=== PATIENT | male | born 1975 | race Caucasian/White ===

== ENCOUNTER 2024-06-07 18:53 | Emergency (ER) | payer OTHER ==
[2024-06-07 19:39] VITALS: O2SAT 100
--- NOTE | 2024-06-07 19:43 | ERPHSYRPT ---
- History of Present Illness Time Seen by Provider: 06/07/24 19:35 Source: patient, family Exam Limitations: no limitations Physician History: This is a 49-year-old white male patient who presents with weakness and fatigue as well as dark stools that he has been passing for approximately 2 to 3 days. He was seen at [facility] and I reviewed the outside facility emergency department medical chart from there from his visit June 05 and 2024. Patient was found to have a hemoglobin of 4.3. However, this patient has had multiple evaluations and treatments in the emergency department [facility] and often becomes angry and belligerent and this time he was admitted into the hospital and given octreotide and was to start blood transfusions of packed red blood cells. However, he decided to leave AMA. He called our emergency department and asked only if we could provide blood transfusions of packed red cells if it was necessary for him to have. He was told yes. Patient has a history of symptomatic anemia, liver cirrhosis, esophageal varices, hepatitis C, schizophrenia, thrombocytopenia, alcohol abuse. His baseline hemoglobin level is 9 per review of the outside facility patient's chart. Patient was calm and kind here in the emergency department. Timing/Duration: day(s) (Approximately 2 to 3 days) Severity: moderate Modifying Factors: Improves With: nothing Associated Symptoms: shortness of breath, weakness, other (Fatigue) Allergies/Adverse Reactions: codeine Allergy (Severe, Verified 06/07/24 19:41) Difficulty Breathing Penicillins Allergy (Severe, Verified 06/07/24 19:41) Difficulty Breathing Home Medications: Albuterol 8 gm Mdi Hfa [Ventolin Hfa MDI] 2 puff IH UD 06/07/24 [History] diazePAM [Valium] 10 mg PO BID 06/07/24 [History] Travel Risk - International Travel Have you traveled outside of the country in past 3 weeks: No - Emerging Infectious Disease Are you exhibiting symptoms associated with any current EIDs: No - Review of Systems Constitutional: Fatigue, Weakness Eyes: No Symptoms Ears, Nose, & Throat: No Symptoms Respiratory: Dyspnea Cardiac: Chest Pain (Mild) Abdominal/Gastrointestinal: No Symptoms Genitourinary Symptoms: No Symptoms Musculoskeletal: No Symptoms Skin: No Symptoms Neurological: No Symptoms Psychological: No Symptoms Endocrine: No Symptoms Hematologic/Lymphatic: No Symptoms Immunological/Allergic: No Symptoms All Other Systems: Reviewed and Negative - Past Medical History Pertinent Past Medical History: Yes - Nursing Vital Signs Nursing Vital Signs: Initial Vital Signs Pulse Rate 111 H 06/07/24 19:38 Respiratory Rate 20 06/07/24 19:38 Blood Pressure 120/78 06/07/24 19:38 O2 Sat by Pulse Oximetry 100 06/07/24 19:38 Pain Scale Pain Intensity 0 - Physical Exam General Appearance: no apparent distress, alert, anxiety, obese Eye Exam: pale conjunctivae Ears, Nose, Throat Exam: normal ENT inspection, dry mucous membranes Neck Exam: normal inspection, non-tender, supple, full range of motion Respiratory Exam: normal breath sounds, chest tenderness (Mild anterior), lungs clear, airway intact, No respiratory distress Cardiovascular Exam: tachycardia Gastrointestinal/Abdomen Exam: soft, normal bowel sounds, No tenderness Rectal Exam: not done Back Exam: normal inspection, normal range of motion, No CVA tenderness, No vertebral tenderness Extremity Exam: normal inspection, normal range of motion, pelvis stable Neurologic Exam: alert, oriented x 3, cooperative, manager life II-XII nml as tested, nml cerebellar function, nml station & gait, sensation nml Skin Exam: warm, dry, pale SpO2 Interpretation: normal SpO2: 100 - Course Nursing assessment & vital signs reviewed: Yes Ordered Tests: Active Orders 24 hr Category Date Time Status IV Insertion STAT Care 06/07/24 20:07 Active AMYLASE Stat Lab 06/07/24 19:45 Received CBC W DIFF Stat Lab 06/07/24 19:45 Completed CMP Stat Lab 06/07/24 19:45 Received Manual Differential NC Stat Lab 06/07/24 19:45 Completed PROTIME WITH INR Stat Lab 06/07/24 19:45 Received UA W/RFX UR CULTURE Stat Lab 06/07/24 20:08 Ordered Medication Summary Generic Name Dose Route Start Last Admin Trade Name Freq PRN Reason Stop Dose Admin Sodium Chloride 1,000 mls @ 50 mls/hr 06/07/24 20:15 Sodium Chloride 0.9% 1000 Ml IV 07/07/24 20:14 .Q20H KALEB Discontinued Medications Generic Name Dose Route Start Last Admin Trade Name Freq PRN Reason Stop Dose Admin Lorazepam 1 mg 06/07/24 20:08 Lorazepam 2 Mg/1 Ml 2 Mg Vial IV 06/07/24 20:09 STAT ONE Ondansetron HCl 4 mg 06/07/24 20:07 Ondansetron Hcl 4 Mg/2 Ml Vial IV 06/07/24 20:08 STAT ONE Pantoprazole Sodium 40 mg 06/07/24 20:07 Pantoprazole 40 Mg Vial IV 06/07/24 20:08 STAT ONE Lab/Rad Data: Laboratory Result Diagrams 06/07/24 19:45 Laboratory Results 06/07/24 Range/Units 19:45 WBC 6.3 (4.23-9.07) x10^3/uL RBC 2.23 L (4.63-6.08) x10^6/uL Hgb 4.5 L* (13.7-17.5) g/dL Hct 16.3 L (40.1-51.0) % MCV 73.1 L (79.0-92.2) fL MCH 20.2 L (25.7-32.2) pg MCHC 27.6 L (32.3-36.5) g/dL RDW 18.3 H (11.6-14.4) % Plt Count 122 L (163-337) x10^3/uL MPV 11.1 (9.4-12.4) fL Gran % 74.8 H (34.0-67.9) % Immature Gran % (Auto) 0.3 (0.001-0.429) % Nucleat RBC Rel Count 0.0 (0.00-0.2) % Eos # (Auto) 0.14 (0.04-0.54) x10^3/uL Immature Gran # (Auto) 0.02 (0.001-0.031) x10^3u/L Absolute Lymphs (auto) 0.98 L (1.32-3.57) x10^3/uL Absolute Monos (auto) 0.44 (0.30-0.82) x10^3/uL Absolute Nucleated RBC 0.00 (0.00-0.012) x10^3u/L Lymphocytes % 15.5 L (21.8-53.1) % Monocytes % 6.9 (5.3-12.2) % Eosinophils % 2.2 (0.8-7.0) % Basophils % 0.3 (0.2-1.2) % Absolute Granulocytes 4.74 (1.78-5.38) x10^3/uL Basophils # 0.02 (0.01-0.08) x10^3/uL - Progress Progress: unchanged Progress Note: 06/07/24 20:25 My medical decision making and the assignment of high complexity is based on the review of the patient's past medical history, review of patient's medication list, review of patient drug allergy list, history present illness and physical findings on examination. The workup in this patient includes intravenous line placement, infusion normal saline solution, type and cross this patient for 2 units of packed red blood cells, CBC, CMP, twelve-lead EKG, troponin level, CT scan of the abdomen pelvis without contrast. 1 to 2 units of packed red blood cells are available we will begin transfusion of them. The patient will need to be transferred to a facility where there is a hogshead stock clerk available. When I discussed this with him, he was surprised. He was not angry. He stated that he was told by the nurse that we had GI services available here at our facility and have the ability to provide the patient with blood transfusion. It was confirmed and verified by other nurses that the patient was told by the nurse that we had ability to provide the patient with blood transfusions. The nurse was never asked about GI services. She did not have out side facility emergency department paperwork at the time she was discussing with the patient. The patient is adamant that he is leaving and taking his with him and going to [place]. He did not want to go back to [facility]. I encouraged him to allow us to put the IV in, provide him with infusion of IV fluids and packed red blood cells as well as continue with our workup since he was hemod ynamically stable with only mild tachycardia at this time and there was no signs of active bleeding. I also recommended that he allow us to contact the facility where he wants to go to and transfer him formally. He is refusing and he wants to leave AGAINST MEDICAL ADVICE. The patient is awake alert and oriented and has a capacity to understand what I am saying. He did repeat back what I told him and he still wants to leave AGAINST MEDICAL ADVICE. He does not want to be transferred by ambulance. He stated he cannot leave his . He understands the benefits of continuing the workup as planned and transferring via an ambulance. He also understands the risk of worsening condition, sudden active bleeding and possible . Medical Desision Making - Independent Historian Additional History obtained from: Spouse - Diagnostic Testing Diagnostic test were ordered, analyzed, and reviewed by me: No - Risk of complications The pt has a high risk of morbidity or mortality based on: Decision regarding hospitilization or escalation of hosp level of care - Departure Departure Disposition: AMA Clinical Impression: Symptomatic anemia Condition: Stable Critical Care Time: Yes Critical Care Time(excluding separately billable procedures): Critical 30-74 mins (30)
[2024-06-07] MEDS ORDERED: Zofran 4 MG/2 ML VIAL IV ONE (20:07)
[2024-06-07] MEDS ORDERED: PROTONIX 40 MG IV IV ONE (20:07)
[2024-06-07] MEDS ORDERED: Ativan 2 MG/1 ML VIAL IV ONE (20:08)
[2024-06-07 20:14] LABS: Absolute Neutrophil Ct (ANC) 4.74 x10^3/uL (1.78-5.38); BASOPHIL % 0.3 % (0.2-1.2); Basophil (Absolute #) 0.02 x10^3/uL (0.01-0.08); Eosinophil % 2.2 % (0.8-7.0); Eosinophil (Absolute #) 0.14 x10^3/uL (0.04-0.54); Hematocrit 16.3 % (40.1-51.0); IMMATURE GRAN # 0.02 x10^3u/L (0.001-0.031); IMMATURE GRAN % 0.3 % (0.001-0.429); Lymphocyte (Absolute #) 0.98 x10^3/uL (1.32-3.57); Lymphocytes % 15.5 % (21.8-53.1); Mean Cell Volume 73.1 fL (79.0-92.2); Mean Corpuscular Hemoglobin 20.2 pg (25.7-32.2); Mean Corpuscular Hgb Concent. 27.6 g/dL (32.3-36.5); Mean Platelet Volume 11.1 fL (9.4-12.4); Monocyte (Absolute #) 0.44 x10^3/uL (0.30-0.82); Monocytes % 6.9 % (5.3-12.2); Neutrophil % 74.8 % (34.0-67.9); Platelet Count 122 x10^3/uL (163-337); Red Blood Count 2.23 x10^6/uL (4.63-6.08); Red Cell Distribution Width 18.3 % (11.6-14.4); White Blood Count 6.3 x10^3/uL (4.23-9.07)
[2024-06-07 20:15] LABS: Hemoglobin 4.5 g/dL (13.7-17.5)
[2024-06-07] MEDS ORDERED: Sodium Chloride 0.9% 1000 ML 1,000 ML IV SCH (20:15)
[2024-06-07 20:21] LABS: ALBUMIN 3.6 g/dL (3.5-5.0); ANION GAP 14.1 MEQ/L (5-15); BILIRUBIN,TOTAL 0.3 mg/dL (0.2-1.3); Calcium 8.5 mg/dL (8.4-10.2); Creatinine 1 0.88 mg/dL (0.66-1.25); EST GLOMERULAR FILTRATION RATE 106.7 ML/MIN; Potassium 3.9 mmol/L (3.5-5.1); Total Protein 6.9 g/dL (6.3-8.2)
[2024-06-07 20:22] VITALS: BP 133/85; PULSE 118; RESP 22
[2024-06-07 20:25] LABS: INR 1.04 (0.8-3.0); PROTIME 11.3 SECONDS (9.4-12.5)
[2024-06-07 20:59] LABS: Antibody Screen NEGATIVE (NEGATIVE); RH TYPING POSITIVE
[2024-06-07 21:00] LABS: ABO TYPING O
[2024-06-07 21:04] LABS: CROSS MATCH (PRBC) COMPATIBLE (COMPATIBLE)
[2024-06-07 21:05] LABS: CROSS MATCH (PRBC) COMPATIBLE (COMPATIBLE)
[2024-06-07 22:23] LABS: Slide Review 1 YES
== END 2024-06-07 20:21 | disposition left against medical advice (07) ==
LOC: ED 18:53
DX: D64.9 Anemia, unspecified (principal); R53.1 Weakness; R53.83 Other fatigue; Z79.899 Other long term (current) drug therapy
CPT/HCPCS: 36415; 80053; 82150; 85025; 85610; 86850; 86900; 86901; 86922; 99283; 99284